=== PATIENT | male | born 1960 | race African-American/Black ===

== ENCOUNTER 2021-02-02 06:04 | Day surgery (SDC) | payer OTHER ==
[~2021-02-02] VITALS: Ht 190.5 cm; Wt 97.0 kg
[~2021-02-02 06:04] MED LIST: HYDROmorphone 2 MG/ML VIAL IVP PRN; IV RINGERS,LACTATED 1000ML 1,000 ML IV SCH; PROCHLORPERAZINE 10 MG/2 ML VIAL. IVP PRN; fentaNYL PF VIAL 100 MCG/2 ML VIAL IVP PRN
[2021-02-02] MEDS ORDERED: LIDOCAINE 2% PF 5 ML VIAL. ONE (06:39)
[2021-02-02] MEDS ORDERED: ROCURONIUM 50 MG/5 ML VIAL. ONE ×2 (06:39→08:38)
[2021-02-02] MEDS ORDERED: PROPOFOL 10 MG/ML (20ML) VIAL. IV ONE (06:39)
[2021-02-02 06:48] VITALS: BP 148/98
[2021-02-02] MEDS ORDERED: fentaNYL PF VIAL 100 MCG/2 ML VIAL ONE ×3 (06:54→11:05)
[2021-02-02] MEDS ORDERED: MIDAZOLAM HCL/PF 2 MG/2 ML VIAL. ONE (06:55)
[2021-02-02] MEDS ORDERED: ONDANSETRON PF 4 MG/2 ML VIAL. ONE (06:56)
[2021-02-02] MEDS ORDERED: DEXAMETHASONE SOD PHOS 4 MG/ML VIAL ONE (06:56)
[2021-02-02] MEDS ORDERED: NEOSTIGMINE METHYLSULFATE 5 MG/5 ML SYRINGE. ONE (06:57)
[2021-02-02] MEDS ORDERED: GLYCOPYRROLATE 1 MG/5 ML VIAL. ONE (06:57)
[2021-02-02] MEDS ORDERED: BUPIVACAINE-EPI 0.5% 30 ML VIAL KIT. ONE (06:57)
[2021-02-02] MEDS ORDERED: MORPHINE SULFATE 2 MG/ML INJ. ONE (10:29)
--- NOTE | 2021-02-02 10:29 | PDOC4 ---
Operative Note Operative Note Operative Note: Preoperative Diagnosis: Bilateral inguinal hernias Postoperative Diagnosis: Recurrent bilateral inguinal hernias Procedure: Repair of recurrent bilateral inguinal hernias Surgeon: Venu Manager Transportation Planning: Simón Marshall Anesthesia: Gen EBL: 20 ml Specimen: L inguinal hernia sac Drains: None Complications: None Indication: The patient is a 61-year-old male who is referred with bilateral inguinal hernias. He was offered surgical repair. The risks of surgery were discussed which include bleeding, infection, recurrence, pain, anesthetic risk, potential need for additional surgery procedure. He understands and would like to proceed. Description: The patient was taken to the operating room and placed supine in the operating table. General anesthesia was performed. The bilateral groins were shaved and prepped with Betadine draped in a standard surgical manner. A similar approach was used for both sides. Starting on the left side an incision was made in the groin. Dissection was carried down to the external bleak with cautery. The external oblique was opened down to the external ring. The contents of the inguinal canal were digitally mobilized and encircled with a De Ruyter drain. There was a very large and redundant left inguinal hernia sac present. Further inspection also showed scar tissue and metallic clips from prior surgery, most likely a prior laparoscopic hernia repair. The sac was mobilized from the cord structures down to its base. Due to its redundancy a portion of the sac was excised and sent as a specimen. The remaining sac was oversewn, the stump was inverted, and the defect was filled with an extra large Phasix mesh plug. The plug was sutured into position with interrupted 2-0 Vicryl. The inguinal floor was then reinforced with a Prolene keyhole mesh patch. The mesh was sutured into position with 2-0 Vicryl. A slit was made to accommodate the cord structures. The external oblique was closed over the mesh with 2-0 Vicryl. The subcutaneous tissue was approximated with 3-0 Vicryl. Skin was closed with 4-0 Monocryl. A similar approach was used to repair the right side. The findings were very similar with an indirect hernia sac which was slightly smaller. There were old clips and visible mesh most likely from a prior laparoscopic attempted repair. An extra-large Phasix plug was used similar to the opposite side. The inguinal floor was reinforced with a Prolene mesh patch as well. This was closed similar to the opposite side and both incisions were injected with half percent Marcaine with epinephrine. Steri-Stri ps and a sterile dressing were applied. The patient tolerated the procedure well sent to the recovery room in stable condition. At the end of the case all counts were correct. KENNA ARNOLD MD Feb 02, 2021 10:29
[2021-02-02] MEDS: MORPHINE SULFATE 2 MG/ML INJ. IVP PRN ×2 (10:30→10:44)
[2021-02-02] MEDS ORDERED: HYDR-2759 PO (10:31)
--- NOTE | 2021-02-02 10:33 | DISCH ---
DISCHARGE INSTRUCTIONS Condition on Discharge Condition on Discharge: Stable Activity After Discharge Activity Instructions for Disc: Other, see below (no lifting over 20 lbs, s trenuous activity X 6 weeks) Driving Instructions after Dis: Other, see below (no driving while taking pain meds) Diet after Discharge Diet after Discharge: Regular Wound Incision Care Wound/Incision Care: Other, see below (keep dressings clean and dry X 72 hours, may then remove and shower) Follow-Up Follow up with: Dr Arnold in office in 2 weeks, call for appointment [phone] KENNA ARNOLD MD Feb 02, 2021 10:33
[2021-02-02] MEDS ORDERED: HYDROcodone/APAP 5/325MG 1 TAB TABLET PO ONE (10:45)
[2021-02-02 11:02] VITALS: BP 152/103
--- NOTE | 2021-02-03 14:07 | PATHOLOGY ---
[facility] Accession Number: [id number] . 01 Material submitted: . inguinal area - LEFT INGUINAL HERNIA SAC. Modifiers: left . 01 Clinical history: . BILATERAL INGUINAL HERNIAS BILATERAL INGUINAL HERNIA REPAIR . 02 Diagnosis: Segments of focal mesothelial-lined fibromembranous, fibromuscular, and adipose tissue, left inguinal hernia repair: - Hernia sac. . (JPM:mm; 02/03/2021) [facility] 02/03/2021 1045 Local . 02 Electronically signed: . Shashi Estrada MD, Pathologist NPI- [id number] . 01 Gross description: . Fixative: Formalin Labeled: Left inguinal hernia sac Specimen received: 2 segments of pink-patino to purple-wright, fibromembranous tissue with a mild amount of fibroadipose tissue attached Dimensions: 8.5 x 5.8 x 2.4 cm Abnormalities: None identified Submitted representatively in cassette A1. ([facility]; 02/02/2021) NRI/NRI 02/02/2021 1552 Local . 02 Pathologist provided ICD-10: K40.90 . 02 CPT . 484095 Specimen Comment: A courtesy copy of this report has been sent to [phone] Specimen Comment: Report sent to Specimen Comment: A duplicate report has been generated due to demographic updates. Performed at: 01 [facility] [address] [address], [place] [id number] MD Jose Owens MD Phone: [phone] Performed at: 02 [facility] [address] [place], [place] [id number] MD Shashi Estrada MD Phone: [phone]
== END 2021-02-02 11:39 | disposition home or self-care (01) ==
LOC: SURG 06:04
PROVIDERS: ATTEND Surgery
DX: K40.21 Bilateral inguinal hernia, without obstruction or gangrene, recurrent (principal); Z79.899 Other long term (current) drug therapy; Z87.891 Personal history of nicotine dependence; Z98.890 Other specified postprocedural states; Z72.89 Other problems related to lifestyle
CPT/HCPCS: 49520; A4930; A6402; C1781; J0690; J1100; J2250; J2270; J2405; J2704; J2710; J3010; J3490